=== PATIENT | female | born 1980 | race Caucasian/White ===

== ENCOUNTER 2022-09-16 10:56 | Outpatient (CLI) | payer BC ==
[2022-09-16 11:34] LABS: BASOPHILS % (AUTO) 0.3 % (0.0-2.0); BILIRUBIN,URINE NEGATIVE (NEGATIVE); BLOOD, URINE 2+ (NEGATIVE); CLARITY/URINE CLEAR (CLEAR); COLOR,URINE YELLOW (YELLOW); EOSINOPHILS # (AUTO) 0.2 K/uL (0.0-0.4); EOSINOPHILS % (AUTO) 3.3 % (0.0-4.0); GLUCOSE,URINE 3+ (NEGATIVE); HEMATOCRIT 26.4 % (36-48); HEMOGLOBIN 8.8 g/dL (12.0-16.0); KETONES,URINE NEGATIVE (NEGATIVE); LEUKOCYTE ESTERASE ,URINE NEGATIVE (NEGATIVE); LYMPHOCYTES # (AUTO) 1.5 K/uL (1.0-5.5); LYMPHOCYTES % (AUTO) 25.9 % (20.5-51.5); MEAN CORPUSCULAR HEMOGLOBIN 28 pg (27-31); MEAN CORPUSCULAR HGB CONC 34 % (32-36); MEAN CORPUSCULAR VOLUME 83 fL (79.0-98.0); MONOCYTES # (AUTO) 0.3 K/uL (0.0-1.0); MONOCYTES % (AUTO) 4.7 % (1.7-9.3); NEUTROPHILS # (AUTO) 3.9 K/uL (1.8-7.7); NEUTROPHILS % (AUTO) 65.8 % (40.0-70.0); NITRITE, URINE POSITIVE (NEGATIVE); PLATELET COUNT (AUTO) 276 K/uL (130-430); PROTEIN URINE NEGATIVE (NEGATIVE); RED BLOOD CELL COUNT(AUTO) 3.18 MIL/uL (4.2-6.2); RED CELL DISTRIBUTION WIDTH 14.1 % (9.0-15.0); UROBILINOGEN,URINE 0.2 (0.2-1.0); WHITE BLOOD COUNT (AUTO) 5.9 K/uL (4.8-10.8)
[2022-09-16 11:47] LABS: BACTERIA,URINE MODERATE /HPF (None Seen); MUCUS,URINE 1+ /LPF (None Seen)
[2022-09-16 11:53] LABS: PROTHROMBIN TIME 9.9 SECS (9.5-12.5)
[2022-09-16 11:54] LABS: TOTAL IRON BIND. CAPACITY 461 ug/dL (250-450)
[2022-09-16 12:02] LABS: ALBUMIN 3.6 g/dL (3.4-4.8); CALCIUM 8.9 mg/dL (8.4-11.0); CREATININE 0.6 mg/dL (0.55-1.30); THYROID STIMULATING HORMONE 4.42 uIu/mL (0.34-4.82); TOTAL BILIRUBIN 0.2 mg/dL (0.0-1.0)
== END 2022-09-16 20:20 | disposition home or self-care (01) ==
LOC: SLB 10:56
PROVIDERS: ATTEND Internal Medicine
DX: E11.65 Type 2 diabetes mellitus with hyperglycemia (principal); D64.9 Anemia, unspecified; E78.5 Hyperlipidemia, unspecified; E55.9 Vitamin D deficiency, unspecified; E56.9 Vitamin deficiency, unspecified
CPT/HCPCS: 36415; 80053; 80061; 81000; 82306; 82607; 83037; 83540; 83550; 84443; 84702; 85025; 85610-TC; 85730-TC

== ENCOUNTER 2022-09-18 12:57 | Outpatient (CLI) | payer BC | END 2022-09-18 18:49 | disposition home or self-care (01) | LOC: SUS 12:57 | PROVIDERS: ATTEND Internal Medicine | DX: D25.9 Leiomyoma of uterus, unspecified (principal); N88.8 Other specified noninflammatory disorders of cervix uteri | CPT/HCPCS: 76856-TC ==

== ENCOUNTER 2022-10-03 13:01 | Emergency (ER) | payer BC, OTHER ==
[~2022-10-03] VITALS: Ht 157.5 cm; Wt 54.4 kg
[2022-10-03 13:05] VITALS: BP_SYST 115
[2022-10-03 13:53] LABS: BASOPHILS % (AUTO) 0.2 % (0.0-2.0); EOSINOPHILS # (AUTO) 0.2 K/uL (0.0-0.4); EOSINOPHILS % (AUTO) 2.6 % (0.0-4.0); HEMATOCRIT 30.3 % (36-48); LYMPHOCYTES # (AUTO) 1.1 K/uL (1.0-5.5); LYMPHOCYTES % (AUTO) 14.2 % (20.5-51.5); MEAN CORPUSCULAR HEMOGLOBIN 29 pg (27-31); MEAN CORPUSCULAR HGB CONC 33 % (32-36); MEAN CORPUSCULAR VOLUME 88 fL (79.0-98.0); MONOCYTES # (AUTO) 0.3 K/uL (0.0-1.0); NEUTROPHILS # (AUTO) 6.3 K/uL (1.8-7.7); PLATELET COUNT (AUTO) 256 K/uL (130-430); RED BLOOD CELL COUNT(AUTO) 3.45 MIL/uL (4.2-6.2); RED CELL DISTRIBUTION WIDTH 20.7 % (9.0-15.0); WHITE BLOOD COUNT (AUTO) 7.9 K/uL (4.8-10.8)
== END 2022-10-03 15:30 | disposition home or self-care (01) ==
LOC: SED 13:01
DX: N92.6 Irregular menstruation, unspecified (principal); D64.9 Anemia, unspecified; E11.9 Type 2 diabetes mellitus without complications; Z79.899 Other long term (current) drug therapy
CPT/HCPCS: 36415; 85025; 99283

== ENCOUNTER 2023-02-10 07:20 | Inpatient (IN) | payer OTHER ==
[2023-02-05 10:58] LABS: BASOPHILS % (AUTO) 0.4 % (0.0-2.0); EOSINOPHILS # (AUTO) 0.2 K/uL (0.0-0.4); EOSINOPHILS % (AUTO) 2.9 % (0.0-4.0); HEMATOCRIT 30.7 % (36-48); LYMPHOCYTES # (AUTO) 1.4 K/uL (1.0-5.5); LYMPHOCYTES % (AUTO) 24.4 % (20.5-51.5); MEAN CORPUSCULAR HEMOGLOBIN 29 pg (27-31); MEAN CORPUSCULAR HGB CONC 33 % (32-36); MEAN CORPUSCULAR VOLUME 88 fL (79.0-98.0); MONOCYTES # (AUTO) 0.2 K/uL (0.0-1.0); MONOCYTES % (AUTO) 4.4 % (1.7-9.3); NEUTROPHILS # (AUTO) 3.8 K/uL (1.8-7.7); NEUTROPHILS % (AUTO) 67.9 % (40.0-70.0); PLATELET COUNT (AUTO) 233 K/uL (130-430); RED BLOOD CELL COUNT(AUTO) 3.47 MIL/uL (4.2-6.2); RED CELL DISTRIBUTION WIDTH 13.3 % (9.0-15.0); WHITE BLOOD COUNT (AUTO) 5.6 K/uL (4.8-10.8)
[~2023-02-10] VITALS: Ht 157.5 cm; Wt 54.4 kg
[~2023-02-10 07:20] MED LIST: CEFAZOLIN SOD 2 GM in D5W 50 ML IV ONE
[2023-02-10 08:31] LABS: SERUM HCG (QUALITATIVE) NEGATIVE (NEGATIVE)
[2023-02-10] MEDS ORDERED: LR 1,000 ML IV.SOLN IV ONE (08:40)
[2023-02-10] MEDS ORDERED: [UNRECOGNIZED DRUG - OTHER] ONE (08:40)
[2023-02-10] MEDS ORDERED: SEVOFLURANE 15 MIN GAS INH ONE (08:40)
[2023-02-10] MEDS ORDERED: ROPIVACAINE HCL/PF 0.2% EPIDURAL 200 ML PLAST..BAG ONE (08:40)
[2023-02-10] MEDS ORDERED: DEXAMETHASONE SOD PHOSPHATE 4 MG/ML VIAL ONE (08:40)
[2023-02-10] MEDS ORDERED: PROPOFOL 200MG/ 20ML VIAL (DIPRIVAN) IV ONE (08:40)
[2023-02-10] MEDS ORDERED: HYDROmorphone 2 MG/ML VIAL ONE (08:40)
[2023-02-10] MEDS ORDERED: ONDANSETRON HCL 4 MG/2 ML VIAL ONE ×3 (08:40→16:31)
[2023-02-10] MEDS ORDERED: WATER FOR IRRIGATION,STERILE 1,000 ML IRRIG.SOLN IR ONE (08:40)
[2023-02-10] MEDS ORDERED: MIDAZOLAM HCL 2 MG/2 ML VIAL (VERSED) ONE (08:40)
[2023-02-10] MEDS ORDERED: ROCURONIUM BROMIDE 10 MG/ML (ZEMURON) ONE (08:40)
[2023-02-10 09:01] LABS: BILIRUBIN,URINE NEGATIVE (NEGATIVE); BLOOD, URINE NEGATIVE (NEGATIVE); CLARITY/URINE CLEAR (CLEAR); COLOR,URINE YELLOW (YELLOW); GLUCOSE,URINE NEGATIVE (NEGATIVE); KETONES,URINE NEGATIVE (NEGATIVE); LEUKOCYTE ESTERASE ,URINE TRACE (NEGATIVE); NITRITE, URINE NEGATIVE (NEGATIVE); PH,URINE 8.5 (5.0-8.0); PROTEIN URINE NEGATIVE (NEGATIVE); UROBILINOGEN,URINE 0.2 (0.2-1.0)
[2023-02-10 09:49] LABS: BACTERIA,URINE FEW /HPF (None Seen); MUCUS,URINE 1+ /LPF (None Seen); RBC,URINE 0-3 /HPF (0-3)
[2023-02-10] MEDS ORDERED: ONDANSETRON HCL 4 MG/2 ML VIAL IVP PRN ×3 (10:30→17:00)
[2023-02-10] MEDS ORDERED: HYDROmorphone 1 MG/ML INJ. CARTRIDGE IVP PRN (10:30)
[2023-02-10] MEDS ORDERED: MEPERIDINE HCL/PF 25 MG/ML DISP.SYRIN IVP PRN (10:30)
[2023-02-10 11:37] VITALS: O2SAT 98
[2023-02-10] MEDS ORDERED: HYDROcodone/ACETAMIN 5-325 MG TAB (NORCO/ VICODIN) PO PRN (12:15)
[2023-02-10] MEDS ORDERED: GLUCOSE (DEXTROSE) ORAL GEL -Adults PO PRN (14:15)
[2023-02-10] MEDS ORDERED: DEXTROSE 50% JECT 50 ML DISP.SYRIN IVP PRN (14:15)
[2023-02-10] MEDS ORDERED: D5W 1,000 ML IV PRN (14:15)
[2023-02-10] MEDS ORDERED: METOCLOPRAMIDE HCL 10 MG/2 ML VIAL IVP ONE (14:15)
[2023-02-10] MEDS ORDERED: METOCLOPRAMIDE HCL 10 MG/2 ML VIAL ONE (14:24)
[2023-02-10] MEDS: INSULIN REGULAR, HUMAN 100 UNITS/ML, 3 ML VIAL (humuLIN R) SUBCUT PRN ×2 (14:28→16:36)
[2023-02-10] MEDS ORDERED: ACETAMINOPHEN I.V. 1000 MG 100 ML IV ONE ×2 (15:46)
[2023-02-10] MEDS ORDERED: DIPHENHYDRAMINE INJ 50 MG/ML VIAL IVP PRN (17:00)
[2023-02-10] MEDS ORDERED: ACETAMINOPHEN 325 MG TABLET PO PRN (17:00)
[2023-02-10 17:54] VITALS: BP_SYST 102; PULSE 116; RESP 20
[2023-02-10] MEDS ORDERED: LR 1,000 ML IV ONE (20:30)
[2023-02-11] MEDS: OXYCODONE/ACETAMINOPHEN 5-325 TABLET PO PRN ×4 (03:02→21:18)
[2023-02-11] MEDS ORDERED: LR 1,000 ML IV ONE (05:15)
[2023-02-11] MEDS: metFORMIN HCL 500 MG TABLET PO SCH (09:00)
[2023-02-11] MEDS: FERROUS SULFATE 325 MG TABLET.DR PO SCH (09:00)
[2023-02-11] MEDS ORDERED: D5/0.45 NS 1,000 ML IV ONE (11:45)
[2023-02-11 12:18] LABS: BASOPHILS % (AUTO) 0.1 % (0.0-2.0); EOSINOPHILS % (AUTO) 0.4 % (0.0-4.0); HEMATOCRIT 25.3 % (36-48); HEMOGLOBIN 8.4 g/dL (12.0-16.0); LYMPHOCYTES # (AUTO) 1.6 K/uL (1.0-5.5); MEAN CORPUSCULAR HEMOGLOBIN 29 pg (27-31); MEAN CORPUSCULAR HGB CONC 33 % (32-36); MEAN CORPUSCULAR VOLUME 88 fL (79.0-98.0); MONOCYTES # (AUTO) 0.6 K/uL (0.0-1.0); MONOCYTES % (AUTO) 5.3 % (1.7-9.3); NEUTROPHILS # (AUTO) 8.4 K/uL (1.8-7.7); NEUTROPHILS % (AUTO) 79.2 % (40.0-70.0); PLATELET COUNT (AUTO) 239 K/uL (130-430); RED BLOOD CELL COUNT(AUTO) 2.88 MIL/uL (4.2-6.2); RED CELL DISTRIBUTION WIDTH 13.7 % (9.0-15.0); WHITE BLOOD COUNT (AUTO) 10.6 K/uL (4.8-10.8)
[2023-02-11 12:31] LABS: CALCIUM 8.1 mg/dL (8.4-11.0); CREATININE 0.65 mg/dL (0.55-1.30); POTASSIUM 3.5 mmol/L (3.5-5.1)
[2023-02-11 12:36] LABS: TOTAL BILIRUBIN 0.6 mg/dL (0.0-1.0); TOTAL PROTEIN, SERUM 5.9 g/dL (6.4-8.3)
[2023-02-11] MEDS ORDERED: METOCLOPRAMIDE HCL 10 MG/2 ML VIAL IVP ONE (14:00)
[2023-02-11] MEDS ORDERED: INSULIN REGULAR, HUMAN 100 UNITS/ML, 3 ML VIAL ONE (16:55)
[2023-02-11] MEDS ORDERED: INSULIN REGULAR, HUMAN 100 UNITS/ML, 3 ML VIAL SUBCUT PRN (17:45)
[2023-02-11] MEDS ORDERED: 0.45% NACL 1,000 ML IV SCH (17:45)
[2023-02-11] MEDS: SIMETHICONE 80 MG TAB.CHEW PO PRN (21:18)
[2023-02-12] MEDS: SIMETHICONE 80 MG TAB.CHEW PO PRN ×4 (00:37→09:15)
[2023-02-12] MEDS: OXYCODONE/ACETAMINOPHEN 5-325 TABLET PO PRN ×3 (05:51→15:44)
[2023-02-12] MEDS: metFORMIN HCL 500 MG TABLET PO SCH (09:00)
[2023-02-12] MEDS: FERROUS SULFATE 325 MG TABLET.DR PO SCH (09:26)
[2023-02-12] MEDS: ONDANSETRON 4 MG ODT TAB PO PRN ×2 (12:11→12:47)
== END 2023-02-12 15:50 | disposition home or self-care (01) | DRG 743 ==
LOC: SDS 07:20 → SMU 07:27 → SPU 17:47 → SDS 17:57
PROVIDERS: ADMIT Specialist; ATTEND Specialist
PROC: 0UN98ZZ Release Uterus, Via Natural or Artificial Opening Endoscopic (ICD-10-PCS; 2023-02-10)
PROC: 0UB74ZZ Excision of Bilateral Fallopian Tubes, Percutaneous Endoscopic Approach (ICD-10-PCS; 2023-02-10)
PROC: 8E0W8CZ Robotic Assisted Procedure of Trunk Region, Via Natural or Artificial Opening Endoscopic (ICD-10-PCS; 2023-02-10)
PROC: 0UT9FZZ Resection of Uterus, Via Natural or Artificial Opening With Percutaneous Endoscopic Assistance (ICD-10-PCS; principal; 2023-02-10 08:51)
DX: D25.9 Leiomyoma of uterus, unspecified (principal); N80.03 Adenomyosis of the uterus; N92.0 Excessive and frequent menstruation with regular cycle; K66.0 Peritoneal adhesions (postprocedural) (postinfection); E11.9 Type 2 diabetes mellitus without complications; D64.9 Anemia, unspecified
CPT/HCPCS: 36415; 71045; 80053; 81000; 82962; 84703; 85025; 87081; 88305; 88307; 93005; 94760; C1727; J0131; J0690; J1100; J1170; J1815; J2405; J2704; J2765; J3465; J7060; J7120; Q0162